=== PATIENT | female | born 1990 ===

== ENCOUNTER 2016-05-30 20:28 | Observation (INO) | payer OTHER ==
[2016-05-30 20:42] VITALS: O2SAT 100
[2016-05-30 21:32] LABS: BASO % 0.4 % (0.0-2.0); EOS # 0.1 K/uL (0.0-0.7); EOS % 1.6 % (0.0-4.0); HEMATOCRIT 31.8 % (34.0-47.0); LYMPH # 1.8 K/uL (1.0-4.3); MEAN CELL VOLUME 86.8 fL (81.0-99.0); MEAN CORPUSCULAR HEMOGLOBIN 28.9 pg (27.0-31.0); MEAN CORPUSCULAR HGB CONC 33.3 g/dL (33.0-37.0); MEAN PLATELET VOLUME 8.9 fL (7.2-11.7); MONO # 0.6 K/uL (0.0-0.8); MONO % 7.2 % (0.0-10.0); RED CELL DISTRIBUTION WIDTH 12.7 % (11.5-14.5); WHITE BLOOD COUNT 8.5 K/uL (4.8-10.8)
[2016-05-30 21:37] LABS: CHLORIDE 105 mmol/L (98-107); POTASSIUM 3.8 mmol/L (3.6-5.2); SODIUM 137 mmol/L (132-148)
[2016-05-30 21:39] LABS: BILIRUBIN,TOTAL 0.2 mg/dL (0.2-1.3); GFR AFRICAN-AMERICAN > 60
--- NOTE | 2016-05-30 21:39 | C.PDOC ---
History Of Present Illness 25 y/o female (currently 17 weeks - ), presents to the ED with complains of RLQ/suprapubic pain since 1700 today (5 hours). Pt states pain has since improved but feels "like something is coming out" of her vagina. She denies vaginal bleeding, discharge, dysuria/hematuria, fever, falls/injuries. 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 Zavala, last US was 05/05/16. Time Seen by Provider: 05/30/16 20:42 Chief Complaint (Nursing): Abdominal Pain History Per: Patient History/Exam Limitations: no limitations Onset/Duration Of Symptoms: Hrs Current Symptoms Are (Timing): Still Present Severity: Mild Location Of Pain/Discomfort: Suprapubic Radiation Of Pain To:: None Quality Of Discomfort: "Pain" Associated Symptoms: denies: Fever, Chills, Nausea, Vomiting, Diarrhea, Urinary Symptoms Exacerbating Factors: None Alleviating Factors: None Recent travel outside of the [place]: No Abnormal Vaginal Bleeding: No Past Medical History Reviewed: Historical Data, Nursing Documentation, Vital Signs Vital Signs: Last Vital Signs Temp 97.1 F L 05/31/16 08:00 Pulse 90 05/31/16 08:00 Resp 18 05/31/16 08:00 BP 96/61 L 05/31/16 08:00 Pulse Ox 100 05/31/16 08:00 - Medical History PMH: No Chronic Diseases Surgical History: No Surg Hx Family History: States: No Known Family Hx - Social History Hx Alcohol Use: No Hx Substance Use: No - Immunization History Hx Tetanus Toxoid Vaccination: No Hx Influenza Vaccination: No Hx Pneumococcal Vaccination: No Review Of Systems Except As Marked, All Systems Reviewed And Found Negative. Constitutional: Negative for: Fever, Chills Cardiovascular: Negative for: Chest Pain, Palpitations Respiratory: Negative for: Cough, Shortness of Breath Gastrointestinal: Negative for: Nausea, Vomiting, Abdominal Pain, Diarrhea Genitourinary: Positive for: Pelvic Pain, Other (pressure sensation in vagina). Negative for: Dysuria, Hematuria, Vaginal Discharge, Vaginal Bleeding Physical Exam - Physical Exam Appears: Non-toxic, No Acute Distress, Other (anxious, tearful) Skin: Warm, Dry Head: Normacephalic Oral Mucosa: Moist Neck: Supple Cardiovascular: Rhythm Regular Respiratory: Normal Breath Sounds, No Rales, No Rhonchi, No Wheezing Gastrointestinal/Abdominal: Bowel Sounds, Soft, Tenderness (mild suprapubic/RLQ tenderness), No Guarding, No Rebound, Other (gravid, fundus 2-3 cm below umbilicus) Pelvic: Normal External Exam, No Vaginal Bleeding, No Vaginal Discharge, Cervix Open, Other (clear colored membrabes protruding through open cervix, no bleeding ) Extremity: Bilateral: Atraumatic Neurological/Psych: Oriented x3 ED Course And Treatment - Laboratory Results Result Diagrams: 06/01/16 06:01 05/30/16 21:25 O2 Sat by Pulse Oximetry: 100 (on room air) Pulse Ox Interpretation: Normal - Other Rad OB US X-Ray: Viewed By Me, Read By Radiologist Interpretation: EXAM: US Uterus (limited). CLINICAL HISTORY: 25 year old female with pelvic pain. Second trimester. Gestational age or LMP: 01/29/16. TECHNIQUE: Real-time ultrasound of the maternal uterus (limited) with image documentation. EXAM DATE/TIME: 05/30/16 (9:08pm). COMPARISON: US OB report from 03/13/16. FINDINGS: The LMP is reported to be: 01/29/16. A single live intrauterine is identified, approx. 17 weeks 1 day composite gestational age. Normal interval growth is noted over the past 11 weeks. heart rate is recorded at 150 bpm. The fetus lies breech. The placenta is posterior, with no evidence of previa. The cervix is dilated, compatible with cervical incompetence. The cervix reaches a diameter of. approx. 3.2 cm. The EFBW = 194 gms (0 lb 7 oz). Amniotic fluid volume is visually adequate. TONNY CORTES | Preliminary Radiology Report. TRANSIT BUS DRIVER (QA) DISCREPANCY? If there is a discrepancy between the preliminary and final interpretation, please notify [facility] via [email or web address]. If you do not have access to our QA portal, call our QA team at [phone]. CONFIDENTIALITY STATEMENT. This report is intended only for the use of the referring physician, and only in accordance with law, If you received this in error, call [phone]. Page 2 of 2. No gross anomalies are seen. A 3-vessel cord and cord insertion are visualized. The . stomach, kidneys, and extremities appear unremarkable. IMPRESSION: A single live intrauterine is identified, approx. 17 weeks 1 day gestational age. Based on. the earlier sonogram, the VILLA = . heartbeat is seen. The placenta is posterior, with no previa noted. The fetus lies breech at this time. Findings compatible with cervical incompetence. No gross morphological anomalies are appreciated. IMPRESSION: Thank you for allowing us to participate in the care of your patient. Dictated and Authenticated by: Sugar Phillips MD. 05/30/2016 11:22 PM Eastern Time ([place] & [place]) ABD US X-Ray: Viewed By Me, Read By Radiologist Interpretation: EXAM: US Abdomen Complete. CLINICAL HISTORY: 25 years old female with RLQ pain. Visualize appendix. TECHNIQUE: Real-time ultrasound of the abdomen (complete) with image documentation. EXAM DATE/TIME: 05/30/16 (9:15pm). COMPARISON: No relevant prior studies available. FINDINGS : This is a limited study due to overlying bowel gas. The liver is normal in size (14.1 cm length) and texture. The spleen was not examined. The gallbladder demonstrates normal wall thickness (2.5 mm), with no stones nor sludge appreciated. No pericholecystic fluid is seen. The sonographic Patel' s sign is reported to be (-). The CBD is not dilated (3.9 mm diameter). The kidneys are normal in size, with no solid masses and no gross hydronephrosis noted. The right. intrarenal collecting system is mildly full. The right kidney measures 10.8 cm in length. The left kidney measures 11.4 cm in length. The pancreas is not clearly visualized (obscured by bowel gas). TONNY CORTES | Preliminary Radiology Report. TRANSIT BUS DRIVER (QA) DISCREPANCY? If there is a discrepancy between the preliminary and final interpretation, please notify [facility] via [email or web address]. If you do not have access to our QA portal, call our QA team at [phone]. CONFIDENTIALITY STATEMENT. This report is intended only for the use of the referring physician, and only in accordance with law, If you received this in error, call [phone]. Page 2 of 2. No abnormal fluid collections are seen. The abdominal aorta and IVC appear unremarkable. IMPRESSION: The right intrarenal collecting system is mildly full. No obstructing stones are seen. The gallbladder is unremarkable, with no stones identified. No biliary obstruction is evident. Thank you for allowing us to participate in the care of your patient. Dictated and Authenticated by: Sugar Phillips MD. 05/30/2016 10:39 PM Eastern Time ([place] & [place]) Progress Note: Plan: Blood work, UA, US of abdomnen/pelvis ordered. Patient given IV NS bolus. 10:40PM- Patient returned to ER from US, pelvic exam done by me shows membranes bulging through cervix. Call placed to patient's business reporting developer, she will call me back. Pending call back from our business reporting developer Dr. Gould who is currently in the OR. - Physician Consult Information Physician Contacted: Ivon Tellez Outcome Of Conversation: Discussed patient with Dr. Tripp Tellez, she would like patient admitted as obs to business reporting developer floor (already spoke with out business reporting developer Dr. Gould) . Patient to be on strict bedrest and made NPO after midnight - for possible cerclage in the AM. Critical Care Time - Critical Care Note Total Time (in mins): 35 Documented critical care: time excludes all time spent performing seperately billable procedures. Disposition - Disposition Disposition: HOSPITALIZED Disposition Time: 23:03 Condition: STABLE - Clinical Impression Clinical Impression: Threatened , Pelvic pain, - Scribe Statement The provider has reviewed the documentation as recorded by the Jaylene García Provider Attestation: All medical record entries made by the Jaylene were at my direction and personally dictated by me. I have reviewed the chart and agree that the record accurately reflects my personal performance of the history, physical exam, medical decision making, and the department course for this patient. I have also personally directed, reviewed, and agree with the discharge instructions and disposition. Decision To Admit - Pt Status Changed To: Hospital Disposition Of: Observation - . Bed Request Type: GATE CLERK Admitting Physician: Ivon Tellez Patient Diagnosis: Threatened , Pelvic pain,
[2016-05-30 21:40] LABS: ALKALINE PHOSPHATASE 113 U/L (38-126); ALT/SGPT 78 U/L (9-52); AST/SGOT 45 U/L (14-36); BLOOD UREA NITROGEN 3 mg/dL (7-17); CARBON DIOXIDE 20 mmol/L (22-30); GLUCOSE,RANDOM 81 mg/dL (65-105); TOTAL PROTEIN 6.8 g/dL (6.3-8.3)
[2016-05-30 21:41] LABS: CALCIUM 8.7 mg/dl (8.6-10.4)
[2016-05-30 22:35] LABS: RBC URINE < 1 /hpf (0-3); URINE BACTERIA OCC (<OCC); URINE BILIRUBIN NEGATIVE (NEGATIVE); URINE COLOR Straw (YELLOW); URINE GLUCOSE (UA) NORMAL (Normal); URINE KETONE 1+ mg/dL (NEGATIVE); URINE PROTEIN NEGATIVE (NEGATIVE); URINE UROBILINOGEN NORMAL mg/dL (0.2-1.0); WBC URINE 4 /hpf (0-5)
[2016-05-30 22:38] LABS: URINE BLOOD NEGATIVE (NEGATIVE); URINE LEUKOCYTE ESTERASE TRACE Leu/uL (Negative)
[2016-05-31 08:42] VITALS: BP 96/61; PULSE 90; RESP 18; TEMP 97.1
--- NOTE | 2016-05-31 10:04 | US ---
HISTORY: RLQ PAIN, VISUALIZE APPENDIX COMPARISON: None. TECHNIQUE: Grayscale imaging was performed. Examination is limited due to excessive bowel gas. FINDINGS: LIVER: Measures 14.0 cm. Normal echogenicity of the liver parenchyma. No mass. No intrahepatic bile duct dilatation. GALLBLADDER: Unremarkable. No gallstones. COMMON BILE DUCT: Measures 4.0 mm. No stones. No dilatation. PANCREAS: Obscured by bowel gas. RIGHT KIDNEY: Measures 10.7cm. Normal echogenicity. No calculus, mass, or hydronephrosis. There is mild fullness in the collecting system. LEFT KIDNEY: Measures 11.4cm. Normal echogenicity. No calculus, mass, or hydronephrosis. SPLEEN: Normal in size and contour. No mass. AORTA: No aneurysmal dilatation. IVC: Unremarkable. OTHER FINDINGS: None. IMPRESSION: Limited examination due to excessive bowel gas, allowing for this no evidence of cholelithiasis or biliary dilatation. Mild fullness in the right collecting system. No nephrolithiasis.
--- NOTE | 2016-05-31 10:14 | CP.PCM.HP ---
History of Present Illness - History of Present Illness History of Present Illness: 25 y/o @ 17.3 wks GA VILLA 11/05/2016 with IVF , bicornuate uterus vanishing twin who reported feeling pressure type symptoms around 5pm yesterday after urinating. Pt felt that something was coming out again at 6pm when she stood up to go to bathroom. Pt states everytime we stood up felt same symptoms. Pt paged MD with feeling like something is coming out and was advised to take ambulance and go to nearest hospital. UPon evualation by ER Exam was significant for membranes in vagina. Pt was admitted overnight and evaluated by me this morning. Pt currently had no complaints, no pressure, no pain and was using bedpan to urinate as anytime she stood up felt pressure and somethign protruding. UPon examination, membranes were outside of the vagina, and on specululm exam pt had bulging membranes with slighlty discolored amnitotic fluid and upon gentle examination felt to be 5cm dilated. Pt denies any pain, bowel or bladder complaints, vaginal bleeding, pressure, fevers, chills, nause, vomiting. Bedside US showed within vaginal, low FHR 90bpm Pt informed MFM Dr Zavala consulted and advised reocmmend elective termination with antibiotics due to inevitable with poor survivial and risks not limited to matenral sepsis/ . Both patient and agree to proceed with termination due to risks. ALl questions answered. OB: P0 PLUGGER MAN: Denies hx of abnormal pap, fibroids, ovairan cyst, STI PMH: Denies PSH: denies FHX: denies SHX: negative etoh/tobacco/drugs MEDS :PNV NKDA Present on Admission - Present on Admission Any Indicators Present on Admission: No Review of Systems - Constitutional Constitutional: As Per HPI - EENT Eyes: As Per HPI Ears: As Per HPI Nose/Mouth/Throat: As Per HPI - Breasts Breasts: As Per HPI - Cardiovascular Cardiovascular: As Per HPI - Respiratory Respiratory: As Per HPI - Gastrointestinal Gastrointestinal: As Per HPI - Genitourinary Genitourinary: As Per HPI - Reproductive: Female Reproductive:Female: As Per HPI - Menstruation Menstruation: As Per HPI - Musculoskeletal Musculoskeletal: As Per HPI Past Patient History - Infectious Disease Hx of Infectious Diseases: None - Past Medical History & Family History Past Medical History?: No Past Family History: Reviewed and not pertinent - Past Social History Smoking Status: Never Smoked Chewing Tobacco Use: No Cigar Use: No Alcohol: None Home Situation {Lives}: With Family Domestic Violence: Negative - CARDIAC Hx Cardiac Disorders: No - PSYCHIATRIC Hx Substance Use: No - SURGICAL HISTORY Hx Surgeries: No - ANESTHESIA Hx Anesthesia: No Meds Allergies/Adverse Reactions: Allergies Allergy/AdvReac Type Severity Reaction Status Date / Time No Known Allergies Allergy Unverified 05/30/16 20:42 Physical Exam - Constitutional Appears: Well, Non-toxic - Head Exam Head Exam: ATRAUMATIC, NORMAL INSPECTION - Eye Exam Eye Exam: EOMI, Normal appearance, PERRL Pupil Exam: NORMAL ACCOMODATION - ENT Exam ENT Exam: Mucous Membranes Moist, Normal Exam - Neck Exam Neck exam: Positive for: Normal Inspection - Respiratory Exam Respiratory Exam: Clear to Auscultation Bilateral, NORMAL BREATHING PATTERN - Cardiovascular Exam Cardiovascular Exam: REGULAR RHYTHM, +S1, +S2 - GI/Abdominal Exam GI & Abdominal Exam: Normal Bowel Sounds, Soft Additional comments: gravid, non tender, no uterine tenderness, no guarding,no rebound tendenress, no rigidity - Rectal Exam Rectal Exam: Deferred - Exam Additional comments: External Genitalia: Membranes visulzued outside of vagina Bladder: non tender Vagina: Membranes slighlty discolored amniotic flud bulging sac in vagina, palpable parts in vagina Cerivx 5cm / 100/+ Uteurs; non tender Adnexa; difficulty to apprecaite ANus/Perienum: grossly normal - Neurological Exam Neurological exam: Abnormal Gait, Alert, CN II-XII Intact - Psychiatric Exam Psychiatric exam: Normal Affect, Normal Mood - Skin Skin Exam: Dry, Intact, Normal Color Additional comments: negative magno's sign, no cyanois, clubbing, edmea Results - Vital Signs Recent Vital Signs: Last Vital Signs Temp 97.1 F L 05/31/16 08:00 Pulse 90 05/31/16 08:00 Resp 18 05/31/16 08:00 BP 96/61 L 05/31/16 08:00 Pulse Ox 100 05/31/16 08:00 - Labs Result Diagrams: 05/30/16 21:25 05/30/16 21:25 Assessment & Plan (1) Inevitable Assessment and Plan: 1. Admit to OBGYN 2. NPO, IVF 3. Cytotec per vagina q 4 hours for elective induction for termination due to inevitable 4. Suspected chorioamnitos: Ampicillin, Gentamyicn 5. Daily CBC 6. SCDS 7. VS per protocol 8. Bereavement services Status: Acute
--- NOTE | 2016-05-31 11:55 | US ---
PROCEDURE: Obstetrical ultrasound examination HISTORY: PELVIC PAIN, COMPARISON: 03/13/2016 TECHNIQUE: Transabdominal FINDINGS: The examination demonstrates a single live intrauterine gestation. The heart rate is 156 beats per minute. Normal quantity of amniotic fluid is visualized. A posterior placenta is identified. There is no evidence of placenta previa. The cervix is incompetent and widely open. It measures approximately 3.2 cm . The presentation appears breech. biometry yields an average ultrasound age of 17 weeks 1 day. The VILLA by ultrasound is 11/06/2016. Interval growth has been appropriate since the prior ultrasound examination. Limited review of anatomy demonstrates fluid distending the stomach and urinary bladder. A 4 chamber heart is demonstrated. No gross abnormality of the spine is seen. There is no evidence of hydronephrosis. A three- vessel umbilical cord is demonstrated. The anterior abdominal wall is intact. IMPRESSION: Single live intrauterine gestation of approximately 17 weeks 1 day gestational age. Incompetent cervix, widely no gross anatomic abnormality. Posterior placenta. No evidence of placenta previa. Normal interval growth since prior ultrasound examination. Preliminary interpretation of this examination was reported by [email or web address] at 11:22 p.m. on 05/30/2016. There is concurrence of this report with the preliminary interpretation. [facility]
[2016-05-31] MEDS ORDERED: Nalbuphine 20 mg/ml Inj (1 ml) IVP PRN (12:00)
--- NOTE | 2016-05-31 13:17 | OBPN ---
Datetime: 05/31/2016 13:09 IP Progress Note Comment: Patient received in LDR#4, crying and appropriately sad. at rabia e - serves as clarification re: language Patient reports crampy lower abdomnal pain onset approximately 10 - 15 minutes ago. Cytotec 400 micrograms placed in posterior vaginal vault. parts palpabel in vaginal vault. Assessment: 25 yo P0, 17w 3d, inevitable , IVF , vanishing twin for evacuation of uterus. Afebrile, vital signs stable. Clinically stable. Plan: 1) As above. 2) Cytotec 400 micrograms pV every 4 hours, until passage of fetus 3) Nubain, phenergan for pain - as per Dr. Tellez
[2016-05-31] MEDS: Gentamicin 80 mg in 0.9% NS 100 ML IVPB SCH ×2 (13:37→21:07)
[2016-05-31] MEDS ORDERED: Nalbuphine 20 mg/ml Inj (1 ml) ONE (14:05)
[2016-05-31] MEDS: Lactated Ringer's 1,000 ML IV SCH ×2 (18:58→21:12)
--- NOTE | 2016-05-31 20:15 | OBDS ---
DELIVERY PERSONNEL Delivery Doctor: Arleth Carrero MD Bioanalyst: AllieLinda RN MATERNAL INFORMATION Delivery Anesthesia: None Medications in Delivery: Oxytocin 20 u 1000 ml LR Maternal Complications: Other Other Maternal Complications: Came in with bulging membrane,4 cm dilated.See providers view RN Comments: 1428 17 WEEKS FETUS EXPELLED,mother stated not wanting to see the baby.Dr BETH scott notified.Placenta not yet delivered.Pitocin 20 u 1L LR infusing @125/min.NO undue vaginal bleedi ng.Pt made comfortable. Provider Comments: pt seen and examined. umbilical cord outside of vagin, one pull, cord detached, m anueal removal of placenta. fundus firm, good hemostaiss, no ocmplicatoins. LABOR SUMMARY EDC: 11/05/2016 00:00 No. Babies in Womb: 1 Attempted: No Labor Anesthesia: None LABOR INFORMATION Cervical Ripening Agents: Cytotec @ 400 mcg intravaginally inserted by Arleth Garcia,dose verified,p rocedure ,actions explained to patient,verbalized understanding MEMBRANES Membranes Rupture Method: Spontaneous Rupture of Membranes: 05/31/2016 14:26 Length of Rupture (hrs): 0.03 Amniotic Fluid Color: Clear Amniotic Fluid Amount: Small Amniotic Fluid Odor: Normal STAGES OF LABOR Stage 3 hrs: 5 Stage 3 min: 42 BABY A INFORMATION Delivery Date/Time: 05/31/2016 14:28 SHOULDER DYSTOCIA BABY A Delivery Date/Time: 05/31/2016 14:28 PLACENTA INFORMATION BABY A Placenta Delivery Time : 05/31/2016 20:10 Placenta Method of Delivery: Manual Removal Placenta Status: Delivered INFORMATION BABY A Infant Outcome : AB < 20 Week
[2016-05-31] MEDS ORDERED: Oxycodone/Acetaminophen 5/325 mg Tab PO PRN ×2 (20:30)
[2016-05-31] MEDS ORDERED: Gentamicin 80 mg/2mL Inj. ONE (21:03)
[2016-06-01] MEDS: Gentamicin 80 mg in 0.9% NS 100 ML IVPB SCH (05:00)
[2016-06-01] MEDS ORDERED: Gentamicin 80 mg/2mL Inj. ONE (05:01)
[2016-06-01 06:06] LABS: MEAN CORPUSCULAR HGB CONC 33.4 g/dL (33.0-37.0); MEAN PLATELET VOLUME 9.2 fL (7.2-11.7); WHITE BLOOD COUNT 9.5 K/uL (4.8-10.8)
--- NOTE | 2016-06-01 10:25 | OBPN ---
Datetime: 06/01/2016 09:00 IP Progress Plan: Discharge IP Progress Note Comment: Patient received sitting up in bed, LDR#4: appropriately sad. at h er bedside. No complaints HEENT: Full ROM Lungs: CTA bilaterally Cardiac: RRR, normal S1, S2 Abdomen: soft, non distended; non tender in all quadrants - mild lochia rubra Extremities: no calf tenderness, cyanosis or edema - CBC this morning: WBC 9.5; H/H 9.4/28; plt 265 Assessment: HD#3, 25 yo P0010, S/P inevitable at 17w 3d. Patient has received support fro saroj Regrader and has been counseled by social sciences chair - referral information has been provided. Anemic - asymptomatic. Patient is afebrile, vital signs noted and stable. Patient is clinically stable. Plan 1) Discharge home 2) F/U Dr Tellez WEd 06/07/16 3) see full discharge instructions
== END 2016-06-01 10:30 | disposition home or self-care (01) ==
LOC: C.ER 20:28 → C.4M 23:03 → C.9E 23:03 → C.4D 23:03
PROVIDERS: ADMIT Obstetrics & Gynecology; ATTEND Obstetrics & Gynecology
DX: O02.1 Missed abortion (principal)
CPT/HCPCS: 59200; 76705; 76815; 80053; 81001; 84702; 85025; 85027; 86850; 86900; 88305; 88309; 99285; G0378; J0290; J1580; J2550; J7050; J7120

== ENCOUNTER 2016-09-06 16:18 | Emergency (ER) | payer OTHER ==
[2016-09-06 16:31] VITALS: RESP 16; TEMP 97.8
--- NOTE | 2016-09-06 17:45 | US ---
HISTORY: vaginal bleeding with LLQ pain COMPARISON: OB ultrasound performed 05/30/16 TECHNIQUE: Real-time transabdominal pelvic ultrasound was performed. In addition a transvaginal pelvic ultrasound was necessary to better depict pelvic anatomy. FINDINGS: UTERUS: Measures 8.7 x 4.6 x 6.0 cm. Anteverted. ENDOMETRIUM: Measures 8 mm in diameter. CERVIX: Cervix length measures approximately 3.7 cm. Small fluid in the cervix. RIGHT OVARY: Measures 3.7 x 2.8 x 3.3 cm. Blood flow is demonstrated. 1.6 x 1.8 x 1.3 cm follicle/cyst. LEFT OVARY: Measures 4.0 x 2.4 x 3.7 cm. Blood flow is demonstrated. 1.2 x 1.0 x 1.6 cm follicle/cyst. FREE FLUID: Small pelvic free fluid. OTHER FINDINGS: None. IMPRESSION: Bilateral follicles/ cysts. Small pelvic free fluid. Small fluid in the cervix.
[2016-09-06 17:53] LABS: BASO # 0.1 K/uL (0.0-0.2); BASO % 0.8 % (0.0-2.0); EOS # 0.1 K/uL (0.0-0.7); EOS % 1.3 % (0.0-4.0); HEMOGLOBIN 12.5 g/dL (11.0-16.0); LYMPH # 1.9 K/uL (1.0-4.3); LYMPH % 21.9 % (20.0-40.0); MEAN CELL VOLUME 84.3 fL (81.0-99.0); MEAN CORPUSCULAR HEMOGLOBIN 28.1 pg (27.0-31.0); MEAN CORPUSCULAR HGB CONC 33.4 g/dL (33.0-37.0); MEAN PLATELET VOLUME 7.9 fL (7.2-11.7); MONO # 0.4 K/uL (0.0-0.8); MONO % 4.6 % (0.0-10.0); NEUT # 6.1 K/uL (1.8-7.0); NEUT % 71.4 % (50.0-75.0); RBC 4.43 Mil/uL (3.80-5.20); RED CELL DISTRIBUTION WIDTH 12.2 % (11.5-14.5); WHITE BLOOD COUNT 8.6 K/uL (4.8-10.8)
--- NOTE | 2016-09-06 19:12 | C.PDOC ---
History Of Present Illness Patient is a 26 y/o female that presents to the emergency department for evaluation of vaginal bleeding, and chronic left side pelvic pain. Patient states she had miscarriage 3 months ago. Her menses has been heavier than usual and lasting 10 days instead of the usual 7. Patient states today is her 7th day of bleeding, and states she was bleeding heavily today. She was seen in the office by her ornament setter today and sent to the ED for labs and US. Notes she has been constipated for past 2 days. Otherwise, denies any dizziness, lightheadedness, nausea, vomiting, or fever. Time Seen by Provider: 09/06/16 16:45 Chief Complaint (Nursing): Female Genitourinary History Per: Patient History/Exam Limitations: no limitations Onset/Duration Of Symptoms: Days Current Symptoms Are (Timing): Still Present Quality Of Discomfort: "Pain" Associated Symptoms: Back Pain. denies: Fever, Chills, Nausea, Vomiting, Diarrhea, Loss Of Appetite, Chest Pain, Constipation, Urinary Symptoms Alleviating Factors: None Recent travel outside of the [place]: No Additional History Per: Patient Abnormal Vaginal Bleeding: Yes Past Medical History Reviewed: Historical Data, Nursing Documentation, Vital Signs Vital Signs: Last Vital Signs Temp 97.8 F 09/06/16 16:24 Pulse 82 09/06/16 16:24 Resp 16 09/06/16 16:24 BP 108/72 09/06/16 16:24 Pulse Ox 100 09/06/16 19:22 Family History: States: Unknown Family Hx - Social History Hx Alcohol Use: No Hx Substance Use: No - Immunization History Hx Tetanus Toxoid Vaccination: No Hx Influenza Vaccination: No Hx Pneumococcal Vaccination: No Review Of Systems Except As Marked, All Systems Reviewed And Found Negative. Constitutional: Negative for: Fever, Chills Cardiovascular: Negative for: Chest Pain, Palpitations, Light Headedness Gastrointestinal: Positive for: Constipation. Negative for: Nausea, Vomiting Genitourinary: Positive for: Vaginal Bleeding, Pelvic Pain. Negative for: Dysuria, Frequency, Incontinence, Hematuria, Vaginal Discharge Physical Exam - Physical Exam Appears: Non-toxic, No Acute Distress Skin: Normal Color, Warm, Dry Head: Atraumatic, Normacephalic Eye(s): bilateral: Normal Inspection Neck: Normal ROM, Supple Chest: Symmetrical Cardiovascular: Rhythm Regular, No Murmur Respiratory: Normal Breath Sounds, No Accessory Muscle Use, No Rales, No Rhonchi , No Wheezing Gastrointestinal/Abdominal: Soft, Tenderness (left pelvic), No Guarding, No Rebound Neurological/Psych: Oriented x3, Normal Speech, Normal Cognition ED Course And Treatment - Laboratory Results Result Diagrams: 09/06/16 17:50 Lab Interpretation: Normal O2 Sat by Pulse Oximetry: 100 Pulse Ox Interpretation: Normal Progress Note: Blood work, pelvis ultrasound ordered and reviewed. Reevaluation Time: 19:46 Reassessment Condition: Improved Disposition Counseled Patient/Family Regarding: Studies Performed, Diagnosis, Need For Followup - Disposition Referrals: Ivon Tellez MD [Staff Provider] - Disposition: HOME/ ROUTINE Disposition Time: 19:58 Condition: IMPROVED Instructions: Menstruation (ED), Menorrhagia (ED) - Clinical Impression Clinical Impression: Menometrorrhagia - Scribe Statement The provider has reviewed the documentation as recorded by the Scribe Thalia Tellez All medical record entries made by the Scribe were at my direction and personally dictated by me. I have reviewed the chart and agree that the record accurately reflects my personal performance of the history, physical exam, medical decision making, and the department course for this patient. I have also personally directed, reviewed, and agree with the discharge instructions and disposition.
[2016-09-06 20:07] VITALS: BP 101/66; PULSE 78; O2SAT 98
== END 2016-09-06 20:07 | disposition home or self-care (01) ==
LOC: C.ER 16:18
DX: N92.1 Excessive and frequent menstruation with irregular cycle (principal)

== ENCOUNTER 2016-09-08 01:49 | Emergency (ER) | payer OTHER ==
--- NOTE | 2016-09-08 02:09 | C.PDOC ---
History Of Present Illness 26 y/o female presents to ED with complaints of increased vaginal bleeding and suprapubic tenderness. Patient states she had a miscarriage 3 months ago and reports heavy menses lasting 10 days instead of usual 7 days. Patient was seen yesterday at ED for similar symptoms and had a negative work up. Patient denies fever, chills, n/v/d, back pain or any other complaints at this time. Time Seen by Provider: 09/08/16 02:08 Chief Complaint (Nursing): Female Genitourinary History Per: Patient History/Exam Limitations: no limitations Onset/Duration Of Symptoms: Days Past Medical History Reviewed: Historical Data, Nursing Documentation, Vital Signs Vital Signs: Last Vital Signs Temp 98 F 09/08/16 02:08 Pulse 88 09/08/16 02:08 Resp 20 09/08/16 02:08 BP 110/74 09/08/16 02:08 Pulse Ox 100 09/08/16 03:00 Family History: States: Unknown Family Hx - Social History Hx Alcohol Use: No Hx Substance Use: No - Immunization History Hx Tetanus Toxoid Vaccination: No Hx Influenza Vaccination: No Hx Pneumococcal Vaccination: No Review Of Systems Constitutional: Negative for: Fever, Chills Gastrointestinal: Negative for: Nausea, Vomiting, Diarrhea Genitourinary: Positive for: Vaginal Bleeding Musculoskeletal: Negative for: Back Pain Skin: Negative for: Rash Physical Exam - Physical Exam Appears: Non-toxic, No Acute Distress Skin: Warm Head: Normacephalic Eye(s): bilateral: Normal Inspection Oral Mucosa: Moist Neck: Supple Chest: Symmetrical Cardiovascular: Rhythm Regular Respiratory: No Rales, No Rhonchi, No Wheezing Gastrointestinal/Abdominal: Tenderness (suprapubic ), No Guarding, No Rebound Pelvic: Other (small amount of blood seen on pad.) Extremity: Normal ROM Neurological/Psych: Oriented x3, Normal Speech, Normal Cognition Gait: Steady ED Course And Treatment - Laboratory Results Result Diagrams: 09/08/16 02:39 09/08/16 02:39 O2 Sat by Pulse Oximetry: 100 (RA) Pulse Ox Interpretation: Normal Progress Note: spoke with dr mcqueen - line analyst - as Hb is stable 12.5/12.2 pt most likely is getting her period. vitals stable Reevaluation Time: 04:11 Reassessment Condition: Improved Medical Decision Making Medical Decision Making: Upon provider reevaluation patient is feeling better, is medically stable, and requires no further treatment in the ED at this time. Patient will be discharged home with Rx for percocet. Counseling was provided and all questions were answered regarding diagnosis and need for follow up with dr zhao pearson. There is agreement to discharge plan. Return if symptoms persist or worsen. Disposition Counseled Patient/Family Regarding: Studies Performed, Diagnosis, Need For Followup - Disposition Referrals: Ivon Pearson MD [Staff Provider] - Disposition: HOME/ ROUTINE Disposition Time: 02:09 Condition: FAIR Additional Instructions: Please return if symptoms recur. Prescriptions: Ondansetron ODT [Zofran ODT] 1 odt PO BID PRN #6 odt PRN Reason: Nausea/Vomiting oxyCODONE/Acetaminophen [Percocet 5/325 mg Tab] 1 tab PO QID PRN #10 tab PRN Reason: Pain Instructions: Menstruation (ED), Menorrhagia (ED) - Clinical Impression Clinical Impression: Menstruation - Scribe Statement The provider has reviewed the documentation as recorded by the Valenteibshea Arteaga All medical record entries made by the Valenteibshea were at my direction and personally dictated by me. I have reviewed the chart and agree that the record accurately reflects my personal performance of the history, physical exam, medical decision making, and the department course for this patient. I have also personally directed, reviewed, and agree with the discharge instructions and disposition.
[2016-09-08] MEDS ORDERED: Sodium Chloride 0.9% 1,000 ML IV ONE (02:14)
[2016-09-08 02:19] VITALS: BMI 23.2
[2016-09-08 02:20] VITALS: RESP 20
[2016-09-08 02:45] LABS: ALBUMIN 4.1 g/dL (3.5-5.0); BASO # 0.2 K/uL (0.0-0.2); BASO % 1.5 % (0.0-2.0); EOS # 0.5 K/uL (0.0-0.7); HEMOGLOBIN 12.2 g/dL (11.0-16.0); LYMPH # 3.7 K/uL (1.0-4.3); MEAN CELL VOLUME 84.5 fL (81.0-99.0); MEAN CORPUSCULAR HEMOGLOBIN 27.6 pg (27.0-31.0); MEAN CORPUSCULAR HGB CONC 32.6 g/dL (33.0-37.0); MEAN PLATELET VOLUME 8.1 fL (7.2-11.7); MONO # 0.6 K/uL (0.0-0.8); MONO % 5.9 % (0.0-10.0); NEUT # 5.8 K/uL (1.8-7.0); NEUT % 53.6 % (50.0-75.0); RBC 4.4 Mil/uL (3.80-5.20); RED CELL DISTRIBUTION WIDTH 12.4 % (11.5-14.5); WHITE BLOOD COUNT 10.8 K/uL (4.8-10.8)
[2016-09-08 02:46] LABS: INR 1.1; PROTHROMBIN TIME 12.1 SECONDS (9.7-12.2)
[2016-09-08 02:48] LABS: ALB/GLOB RATIO 1.1 (1.0-2.1); AST/SGOT 19 U/L (14-36); BLOOD UREA NITROGEN 6 mg/dL (7-17); GFR AFRICAN-AMERICAN > 60; GFR NON-AFRICAN AMERICAN > 60
[2016-09-08 02:49] LABS: ALT/SGPT 22 U/L (9-52)
[2016-09-08 04:28] VITALS: BP 100/65; PULSE 81; TEMP 98.3; O2SAT 97
== END 2016-09-08 04:28 | disposition home or self-care (01) ==
LOC: C.ER 01:49
DX: N92.0 Excessive and frequent menstruation with regular cycle (principal)
CPT/HCPCS: 80053; 85025; 85610; 85730; 86850; 86900; 96361; 96374; 99284; J1885; J7040

== ENCOUNTER 2016-09-09 16:50 | Inpatient (IN) | payer OTHER ==
[2016-09-09 16:50] VITALS: BMI 23.2
[2016-09-09] MEDS ORDERED: Sodium Chloride 0.9% 1,000 ML IV ONE (17:33)
[2016-09-09 18:06] LABS: ALBUMIN 4.2 g/dL (3.5-5.0)
[2016-09-09 18:09] LABS: ALB/GLOB RATIO 1.1 (1.0-2.1); AST/SGOT 22 U/L (14-36); BASO # 0.1 K/uL (0.0-0.2); BASO % 0.9 % (0.0-2.0); EOS # 0.3 K/uL (0.0-0.7); EOS % 3.4 % (0.0-4.0); GFR AFRICAN-AMERICAN > 60; GFR NON-AFRICAN AMERICAN > 60; HEMOGLOBIN 10.8 g/dL (11.0-16.0); LYMPH # 2.3 K/uL (1.0-4.3); MEAN CELL VOLUME 84.5 fL (81.0-99.0); MEAN CORPUSCULAR HEMOGLOBIN 27.8 pg (27.0-31.0); MEAN CORPUSCULAR HGB CONC 32.9 g/dL (33.0-37.0); MEAN PLATELET VOLUME 8.3 fL (7.2-11.7); MONO # 0.7 K/uL (0.0-0.8); MONO % 7.1 % (0.0-10.0); NEUT # 5.9 K/uL (1.8-7.0); NEUT % 63.6 % (50.0-75.0); NRBC % 0.1 % (0.0-2.0); RBC 3.9 Mil/uL (3.80-5.20); RED CELL DISTRIBUTION WIDTH 12.3 % (11.5-14.5); WHITE BLOOD COUNT 9.3 K/uL (4.8-10.8)
[2016-09-09 18:10] LABS: ALT/SGPT 19 U/L (9-52); BLOOD UREA NITROGEN 8 mg/dL (7-17); CALCIUM 9.4 mg/dl (8.6-10.4)
--- NOTE | 2016-09-09 18:16 | C.PDOC ---
History Of Present Illness This is this patient's third ED visit this week for vaginal bleeding. Time Seen by Provider: 09/09/16 17:05 Chief Complaint (Nursing): Female Genitourinary History Per: Patient, Family Onset/Duration Of Symptoms: Days, Waxing/Waning, Persistent Current Symptoms Are (Timing): Still Present Severity: Moderate (to severe) Quality Of Discomfort: Cramping Alleviating Factors: None Additional History Per: Prior Records Abnormal Vaginal Bleeding: Yes Past Medical History Reviewed: Historical Data, Nursing Documentation, Vital Signs Vital Signs: Last Vital Signs Temp 99.0 F 09/09/16 16:56 Pulse 127 H 09/09/16 16:56 Resp 24 09/09/16 16:56 BP 121/86 09/09/16 16:56 Pulse Ox 97 09/09/16 16:56 - Medical History PMH: No Chronic Diseases Family History: States: Unknown Family Hx - Social History Hx Tobacco Use: No Hx Alcohol Use: No Hx Substance Use: No - Immunization History Hx Tetanus Toxoid Vaccination: No Hx Influenza Vaccination: No Hx Pneumococcal Vaccination: No Review Of Systems Except As Marked, All Systems Reviewed And Found Negative. Constitutional: Negative for: Fever, Weakness Cardiovascular: Negative for: Chest Pain Respiratory: Negative for: Shortness of Breath Gastrointestinal: Negative for: Vomiting Genitourinary: Positive for: Vaginal Bleeding. Negative for: Dysuria Musculoskeletal: Negative for: Neck Pain, Back Pain Skin: Negative for: Rash Neurological: Negative for: Weakness, Numbness, Seizures Psych: Positive for: Anxiety Physical Exam - Physical Exam Appears: No Acute Distress, Other (Anxious) Skin: Warm, Dry Head: Atraumatic Eye(s): bilateral: PERRL, EOMI Neck: Normal ROM, Supple Cardiovascular: Rhythm Regular (tachycardia) Respiratory: Normal Breath Sounds, No Accessory Muscle Use Gastrointestinal/Abdominal: Soft, No Tenderness Back: No CVA Tenderness Extremity: Normal ROM Neurological/Psych: Oriented x3, Normal Motor, Normal Sensation ED Course And Treatment - Laboratory Results Result Diagrams: 09/09/16 17:52 09/09/16 17:52 O2 Sat by Pulse Oximetry: 97 Pulse Ox Interpretation: Normal Disposition Discussed With : Ivon Tellez Comment: She evaluated pt in the ED and admitted to her service. Plan is for D& C. Doctor Will See Patient In The: ED Counseled Patient/Family Regarding: Studies Performed, Diagnosis - Disposition Disposition: HOSPITALIZED Disposition Time: 18:19 Condition: GUARDED - Clinical Impression Clinical Impression: DUB (dysfunctional uterine bleeding)
[2016-09-09 18:18] LABS: INR 1.1; PROTHROMBIN TIME 12.3 SECONDS (9.7-12.2)
--- NOTE | 2016-09-09 18:39 | CP.PCM.HP ---
History of Present Illness - History of Present Illness History of Present Illness: 26 y/o LMP irregular with abnormal uterine bleeding x 2 weeks. Pt now with 3rd ER visit and reports vaginal bleeding facuet like with large clots, now subsizied with occasional passing of quarter size clot. Pt had cramping initially at home now improved and feels very anxious about irregular bleeding. Pt had labs from 2 prevoius visits which were stable with pelvic US with no significant findings. Pt denies any CP, SOB, lightheadness, dizzyness. Pt was seen in office with report programmer 09/07 and plan for DxC was discussed however pt declined and bleeding has improved and stated was returning to [facility] next week and would follow with report programmer/john md there. OB: 2nd trimester SAB, PPROM (IVF [place]) INDUSTRIAL LABORER: Bicornuate utdaniele, denies hx of fibroids, ovarian cyst, STI PMH: denies PSH: laparascopy, hysteroscopy FHX: non contributory SHX: negative etoh/tobacco/drugs MEDS: none Present on Admission - Present on Admission Any Indicators Present on Admission: No Review of Systems - Review of Systems All systems: reviewed and no additional remarkable complaints except Review of Systems: see HPI - Constitutional Constitutional: As Per HPI - EENT Eyes: As Per HPI - Cardiovascular Cardiovascular: As Per HPI - Respiratory Respiratory: As Per HPI - Gastrointestinal Gastrointestinal: absent: As Per HPI, Abdominal Pain, Belching, Bloating, Change in Bowel Habits, Change in Stool Character, Coffee Ground Emesis, Constipation, Cramping, Diarrhea, Dyspepsia, Dysphagia, Early Satiety, Excessive Flatus, Fecal Incontinence, Heartburn, Hematemesis, Hematochezia, Loose Stools, Melena, Nausea, Odynophagia, Temesmus, Vomiting, Other - Genitourinary Genitourinary: As Per HPI - Reproductive: Female Reproductive:Female: As Per HPI, Abnormal Vaginal Bleeding - Menstruation Menstruation: Menses >/= 8 Days, Heavy Menses - Integumentary Integumentary: As Per HPI - Neurological Neurological: As Per HPI Past Patient History - Infectious Disease Hx of Infectious Diseases: None - Past Medical History & Family History Past Medical History?: No Past Family History: Reviewed and not pertinent - Past Social History Smoking Status: Never Smoked Chewing Tobacco Use: No Cigar Use: No Alcohol: None - CARDIAC Hx Cardiac Disorders: No - GENITOURINARY/GYNECOLOGICAL Other/Comment: IVF iDecember, 2016. miscarried in May, - PSYCHIATRIC Hx Substance Use: No - SURGICAL HISTORY Hx Surgeries: Yes Other/Comment: Right eardrum - ANESTHESIA Hx Anesthesia: Yes Hx Anesthesia Reactions: No Meds Allergies/Adverse Reactions: Allergies Allergy/AdvReac Type Severity Reaction Status Date / Time No Known Allergies Allergy Verified 09/09/16 16:56 Physical Exam - Constitutional Appears: Well, Non-toxic - Head Exam Head Exam: ATRAUMATIC, NORMAL INSPECTION, NORMOCEPHALIC - Eye Exam Eye Exam: EOMI, Normal appearance - ENT Exam ENT Exam: Mucous Membranes Moist - Neck Exam Neck exam: Positive for: Normal Inspection - Respiratory Exam Respiratory Exam: Clear to Auscultation Bilateral, NORMAL BREATHING PATTERN - Cardiovascular Exam Cardiovascular Exam: +S1, +S2 - GI/Abdominal Exam GI & Abdominal Exam: Normal Bowel Sounds, Soft Additional comments: no guarding, no rebound tenderness, no rigidity, +BS - Exam Additional comments: External Genitalia: no gross abnormalites, small amount of blood on perineum, Urethra: grossly normal Bladder; Non tender Vagina: bloodclot quarter size evaulated, dark red blood Cervix; no active bleeding, no masses Uteurs; anteverted, non tender Adenxa; non tender b/l, no masses b/l Anus/Perineum: grossly normal - Extremities Exam Extremities exam: Negative for: calf tenderness, full ROM, joint swelling, normal capillary refill, normal inspection, pedal edema, tenderness, pedal pulses present Results - Vital Signs Recent Vital Signs: Last Vital Signs Temp 99.0 F 09/09/16 16:56 Pulse 127 H 09/09/16 16:56 Resp 24 09/09/16 16:56 BP 121/86 09/09/16 16:56 Pulse Ox 97 09/09/16 18:19 - Labs Result Diagrams: 09/09/16 17:52 09/09/16 17:52 - Imaging and Cardiology US - abdomen Status: Report reviewed by me Assessment & Plan (1) Abnormal uterine bleeding Assessment and Plan: 26 y/o P0 LMP 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 Admit to report programmer 2. NPO, IVF LR @ 125cc/hr 3. Preop labs 4. VS per ER protoocol/ q 4 hours 5. inbound call center agent to OR for DXC hysterscopy: R/B/A/I OR/Anesthia aware 6. Ge prn/ Ins/outs 7. Bleeding precautions Status: Acute
[2016-09-09] MEDS: Lactated Ringer's 1,000 ML IV SCH (18:49)
[2016-09-10] MEDS: Lactated Ringer's 1,000 ML IV SCH (03:02)
[2016-09-10 08:09] LABS: BASO # 0.1 K/uL (0.0-0.2); BASO % 0.5 % (0.0-2.0); EOS # 0.4 K/uL (0.0-0.7); EOS % 4.4 % (0.0-4.0); HEMOGLOBIN 7.4 g/dL (11.0-16.0); LYMPH # 4.2 K/uL (1.0-4.3); LYMPH % 45.9 % (20.0-40.0); MEAN CELL VOLUME 84.7 fL (81.0-99.0); MEAN CORPUSCULAR HEMOGLOBIN 27.6 pg (27.0-31.0); MEAN CORPUSCULAR HGB CONC 32.6 g/dL (33.0-37.0); MEAN PLATELET VOLUME 8.3 fL (7.2-11.7); MONO # 0.5 K/uL (0.0-0.8); MONO % 5.8 % (0.0-10.0); NEUT % 43.4 % (50.0-75.0); NRBC % 0.1 % (0.0-2.0); RBC 2.67 Mil/uL (3.80-5.20); RED CELL DISTRIBUTION WIDTH 12.2 % (11.5-14.5); WHITE BLOOD COUNT 9.2 K/uL (4.8-10.8)
[2016-09-10] MEDS ORDERED: Lactated Ringer's 1,000 ML IV ONE ×2 (08:53)
[2016-09-10] MEDS ORDERED: Midazolam 2 MG/2 ML VIAL ONE (09:03)
[2016-09-10] MEDS ORDERED: Propofol 10 mg/ml Inj (20 ML) ONE ×2 (09:03→09:55)
[2016-09-10] MEDS ORDERED: Oxytocin 10 Units/ml Inj ONE (09:37)
[2016-09-10] MEDS ORDERED: Lidocaine Hydrochloride 5 ML INJ ONE (09:54)
[2016-09-10] MEDS: HYDROmorphone 0.5 mg/0.5 ml ISec IVP PRN ×2 (10:25→11:00)
[2016-09-10 10:54] LABS: MEAN CORPUSCULAR HEMOGLOBIN 27.4 pg (27.0-31.0); MEAN CORPUSCULAR HGB CONC 31.9 g/dL (33.0-37.0)
[2016-09-10 11:00] LABS: HEMOGLOBIN 7.8 g/dL (11.0-16.0); MEAN CELL VOLUME 85.9 fL (81.0-99.0); MEAN PLATELET VOLUME 8.4 fL (7.2-11.7); RBC 2.83 Mil/uL (3.80-5.20); RED CELL DISTRIBUTION WIDTH 12.5 % (11.5-14.5)
[2016-09-10 11:02] LABS: WHITE BLOOD COUNT 20.7 K/uL (4.8-10.8)
[2016-09-10] MEDS ORDERED: ceFAZolin IV 2 gm in Dextrose 1 GM/50 ML BAG IVPB SCH (11:15)
[2016-09-10] MEDS ORDERED: ceFAZolin 1 gm FROZEN Premix 1 GM/50 ML ML IVPB ONE (11:45)
--- NOTE | 2016-09-10 11:45 | PCM.SURG1 ---
Surgeon's Initial Post Op Note - Surgeon's Notes Surgeon: Ivon Tellez MD Web Analyst: none Type of Anesthesia: General LMA Anesthesia Administered By: Dr Monge Pre-Operative Diagnosis: Abnormal uterine bleeding Operative Findings: small anterverted utuerus 8 weeks sizes, no adnexal masses, thickened white proliferative type endometrium, no gross masses Post-Operative Diagnosis: same as above Operation Performed: Operative hysteroscopy dilation and currettag Specimen/Specimens Removed: endometrial currettings Estimated Blood Loss: EBL {In ML}: 100 Blood Products Given: N/A Drains Used: No Drains Post-Op Condition: Good Date of Surgery/Procedure: 09/10/16 Time of Surgery/Procedure: 09:00
[2016-09-10 16:18] VITALS: BP 100/62; PULSE 80; RESP 20; TEMP 97.8; O2SAT 100
[2016-09-10 18:01] LABS: HEMOGLOBIN 7.5 g/dL (11.0-16.0); LYMPH # 0.6 K/uL (1.0-4.3); LYMPH % 4.9 % (20.0-40.0); MEAN CELL VOLUME 85.1 fL (81.0-99.0); MEAN CORPUSCULAR HEMOGLOBIN 27.6 pg (27.0-31.0); MEAN CORPUSCULAR HGB CONC 32.4 g/dL (33.0-37.0); MEAN PLATELET VOLUME 8.6 fL (7.2-11.7); MONO # 0.1 K/uL (0.0-0.8); MONO % 0.5 % (0.0-10.0); NEUT # 12.5 K/uL (1.8-7.0); NEUT % 94.6 % (50.0-75.0); PLATELET COUNT 303 K/uL (130-400); RBC 2.72 Mil/uL (3.80-5.20); RED CELL DISTRIBUTION WIDTH 12.4 % (11.5-14.5); WHITE BLOOD COUNT 13.2 K/uL (4.8-10.8)
--- NOTE | 2016-09-10 18:18 | CP.PCM.DIS ---
Provider - Provider Date of Admission: 09/09/16 18:19 Attending physician: Ivon Tellez MD Consults: 30 Time Spent in preparation of Discharge (in minutes): 30 Diagnosis - Discharge Diagnosis (1) Abnormal uterine bleeding Status: Acute Priority: Low Hospital Course - Lab Results Lab Results: Most Recent Lab Values WBC 13.2 K/uL (4.8-10.8) H 09/10/16 17:30 RBC 2.72 Mil/uL (3.80-5.20) L 09/10/16 17:30 Hgb 7.5 g/dL (11.0-16.0) L 09/10/16 17:30 Hct 23.1 % (34.0-47.0) L 09/10/16 17:30 MCV 85.1 fL (81.0-99.0) 09/10/16 17:30 MCH 27.6 pg (27.0-31.0) 09/10/16 17:30 MCHC 32.4 g/dL (33.0-37.0) L 09/10/16 17:30 RDW 12.4 % (11.5-14.5) 09/10/16 17:30 Plt Count 303 K/uL (130-400) 09/10/16 17:30 MPV 8.6 fL (7.2-11.7) 09/10/16 17:30 Neut % (Auto) 94.6 % (50.0-75.0) H 09/10/16 17:30 Lymph % (Auto) 4.9 % (20.0-40.0) L 09/10/16 17:30 [place] % (Auto) 0.5 % (0.0-10.0) 09/10/16 17:30 Eos % (Auto) 0.0 % (0.0-4.0) 09/10/16 17:30 Baso % (Auto) 0.0 % (0.0-2.0) 09/10/16 17:30 Neut # 12.5 K/uL (1.8-7.0) H 09/10/16 17:30 Lymph # 0.6 K/uL (1.0-4.3) L 09/10/16 17:30 [place] # 0.1 K/uL (0.0-0.8) 09/10/16 17:30 Eos # 0.0 K/uL (0.0-0.7) 09/10/16 17:30 Baso # 0.0 K/uL (0.0-0.2) 09/10/16 17:30 Differential Comment 09/10/16 10:48 PT 12.3 SECONDS (9.7-12.2) H 09/09/16 17:52 INR 1.1 09/09/16 17:52 APTT 28 SECONDS (21-34) 09/09/16 17:52 Sodium 140 mmol/L (132-148) 09/09/16 17:52 Potassium 4.2 mmol/L (3.6-5.2) 09/09/16 17:52 Chloride 100 mmol/L (98-107) 09/09/16 17:52 Carbon Dioxide 23 mmol/L (22-30) 09/09/16 17:52 Anion Gap 20 (10-20) 09/09/16 17:52 BUN 8 mg/dL (7-17) 09/09/16 17:52 Creatinine 0.5 MG/DL (0.7-1.2) L 09/09/16 17:52 Est GFR ( Amer) > 60 09/09/16 17:52 Est GFR (Non-Af Amer) > 60 09/09/16 17:52 Random Glucose 101 mg/dL (65-105) 09/09/16 17:52 Calcium 9.4 mg/dl (8.6-10.4) 09/09/16 17:52 Total Bilirubin 0.5 mg/dL (0.2-1.3) 09/09/16 17:52 AST 22 U/L (14-36) 09/09/16 17:52 ALT 19 U/L (9-52) 09/09/16 17:52 Alkaline Phosphatase 65 U/L (38-126) 09/09/16 17:52 Total Protein 8.0 g/dL (6.3-8.3) 09/09/16 17:52 Albumin 4.2 g/dL (3.5-5.0) 09/09/16 17:52 Globulin 3.8 gm/dL (2.2-3.9) 09/09/16 17:52 Albumin/Globulin Ratio 1.1 (1.0-2.1) 09/09/16 17:52 Beta HCG, Quant < 2.39 mIU/ML 09/09/16 17:52 Blood Type A POSITIVE 09/09/16 19:33 Antibody Screen Negative 09/09/16 19:33 - Date & Time of H&P Date of H&P: 09/09/16 Discharge Exam - Head Exam Head Exam: ATRAUMATIC, NORMAL INSPECTION, NORMOCEPHALIC - Eye Exam Eye Exam: EOMI - Respiratory Exam Respiratory Exam: Clear to PA & Lateral, NORMAL BREATHING PATTERN, UNREMARKABLE - Cardiovascular Exam Cardiovascular Exam: REGULAR RHYTHM - GI/Abdominal Exam GI & Abdominal Exam: Normal Bowel Sounds, Unremarkable Additional comments: see Hp+P Discharge Plan - Follow Up Plan Condition: GUARDED Disposition: HOME/ ROUTINE Instructions: Dysfunctional Uterine Bleeding (DC), Dilation and Curettage (DC)
[2016-09-10 19:14] LABS: HYPOCHROMIC SLIGHT; LYMPHOCYTE 5 % (20-40); NEUTROPHIL 95 % (50-75); PLATELET ESTIMATE NORMAL (NORMAL); POIKILOCYTOSIS SLIGHT; TOTAL CELLS COUNTED 100
[2016-09-10 19:15] LABS: LARGE PLATELETS PRESENT; OVALOCYTES SLIGHT; POLYCHROMIC SLIGHT
--- NOTE | 2016-09-10 21:25 | OP ---
PROCEDURE DATE: 09/10/2016 SURGEON: Dr. Ivon Tellez. INCOME TAX ADJUSTER: None. TYPE OF ANESTHESIA: General LMA. ANESTHESIA ADMINISTERED: Dr. Monge. PREOPERATIVE DIAGNOSIS: Abnormal uterine bleeding. OPERATIVE FINDINGS: Anteverted uterus, 8-week size; no adnexal masses; thickened white proliferative type endometrium; no gross masses. POSTOPERATIVE DIAGNOSIS: Abnormal uterine bleeding. OPERATION PERFORMED: Operative hysteroscopy and dilation and curettage. SPECIMEN REMOVED: Endometrial curetting. ESTIMATED BLOOD LOSS: 100 mL. BLOOD PRODUCTS: None. COMPLICATIONS: None. PROCEDURE IN DETAIL: The patient is a 26-year-old G1, P0-0-1-0, LMP irregular with abnormal uterine bleeding for the past few weeks, was seen in the ER 3 times within 1 week due to heavy bleeding, symptomatic anemia and pelvic pain. Upon initial evaluation, the patient was noted to be profusely bleeding. The patient was admitted and observed and was counseled for D and C and hysteroscopy. Risks, benefits, alternatives and indications were discussed with the patient. The patient's hemoglobin over the past ER visits had gone from 12 to 10.8 to 7.4 this morning and decision was made for hysteroscopy and D and C. The patient was taken to the operating room where she was given general anesthesia. Once found to be adequate, she was positioned on the operating table in dorsal supine position with legs supported using stirrups. The patient was then prepped and draped in the usual sterile fashion. A time-out confirmed correct patient, correct procedure. A bimanual exam was performed with the above-mentioned findings. A red rubber catheter was inserted into the urethra to drain the bladder and 100 mL of clear yellow urine was obtained. Thin retractor was placed in the anterior and posterior fornix of the vagina and the cervix was adequately visualized. A single tooth tenaculum was placed in the anterior lip of the cervix and the uterus was then sounded to 7 cm. Following this, cervix was sequentially dilated to allow for introduction of the hysteroscopy under visualization using the normal saline as a distention media. Upon visualization, there is no gross mass and there is thickened white proliferative endometrium. A gentle curettage was done 360 degrees and the specimen was sent to pathology on [facility]. As the scope was then reintroduced, there was good hemostasis noted. Following this, there was bleeding noted from the cervical os and by bimanual exam was performed in addition to Pitocin through the IV fluid. The patient was reevaluated and there was good hemostasis noted. All instruments were removed including the single tooth tenaculum. There was good hemostasis at the tenaculum puncture site. At the end of the procedure, all needle, sponge, and instrument counts were noted and correct x2. The patient tolerated the procedure well and was transferred to the recovery room in stable condition. Ivon Tellez MD
== END 2016-09-10 20:45 | disposition home or self-care (01) | DRG 745 ==
LOC: C.ER 16:50 → C.9E 18:19 → C.4M 19:08
PROVIDERS: ADMIT Obstetrics & Gynecology; ATTEND Obstetrics & Gynecology
PROC: 0UDB8ZX Extraction of Endometrium, Via Natural or Artificial Opening Endoscopic, Diagnostic (ICD-10-PCS; principal; 2016-09-10 09:00)
DX: N93.8 Other specified abnormal uterine and vaginal bleeding (principal); N85.4 Malposition of uterus; Q51.3 Bicornate uterus; R93.8 Abnormal findings on diagnostic imaging of other specified body structures

== ENCOUNTER 2018-01-12 12:57 | Emergency (ER) | payer OTHER ==
[2018-01-12 12:57] VITALS: BMI 23.2
[2018-01-12 13:26] VITALS: RESP 18; TEMP 98.4
--- NOTE | 2018-01-12 14:22 | C.PDOC ---
History Of Present Illness 27 year old female presents to the ED complaining of left sided abdominal pain for 10 days but worse since last night. Reports she had an Ultrasound on 01/07/18 which showed an 4.7 x 2.8 x 3.5 mm ovarian cyst. Patient was given pain medications and advised to come to ED if pain got worse. States she has a follow up US tomorrow. Complains of nausea and constipation. Denies any vomiting, diarrhea, fever, chills, back pain, chest pain, shortness of breath, vaginal bleeding or discharge. As per , patient had an uterine embolization last year in [place]. She took Ibuprofen at 10:00 today. LNMP 12/05. Time Seen by Provider: 01/12/18 14:20 Chief Complaint (Nursing): Female Genitourinary History Per: Patient History/Exam Limitations: no limitations Onset/Duration Of Symptoms: Days Current Symptoms Are (Timing): Still Present Past Medical History Reviewed: Historical Data, Nursing Documentation, Vital Signs Vital Signs: Last Vital Signs Temp 98.4 F 01/12/18 13:23 Pulse 77 01/12/18 13:23 Resp 18 01/12/18 13:23 BP 108/71 01/12/18 13:23 Pulse Ox 100 01/12/18 13:23 - Medical History Other PMH: ovarian cyst Other Surgeries: uterine embolization - [facility] EXTRACTION OF ENDOMETRIUM, ENDO, DIAGN (09/09/16) Family History: States: No Known Family Hx - Social History Hx Tobacco Use: No Hx Alcohol Use: No Hx Substance Use: No - Immunization History Hx Tetanus Toxoid Vaccination: No Hx Influenza Vaccination: No Hx Pneumococcal Vaccination: No Review Of Systems Constitutional: Negative for: Fever, Chills Cardiovascular: Negative for: Chest Pain Respiratory: Negative for: Shortness of Breath Gastrointestinal: Positive for: Nausea, Abdominal Pain (left sided), Constipation. Negative for: Vomiting, Diarrhea Genitourinary: Negative for: Dysuria, Hematuria, Vaginal Discharge, Vaginal Bleeding Musculoskeletal: Negative for: Back Pain Physical Exam - Physical Exam Appears: Non-toxic, No Acute Distress Skin: Warm, Dry, No Rash Head: Normacephalic Eye(s): bilateral: Normal Inspection Nose: Normal Oral Mucosa: Moist Neck: Supple Chest: Symmetrical Cardiovascular: Rhythm Regular Respiratory: No Rales, No Rhonchi, No Wheezing Gastrointestinal/Abdominal: Soft, Tenderness (LLQ), No Distention, No Guarding, No Rebound Extremity: Bilateral: Atraumatic, Normal Color And Temperature, Normal ROM Pulses: Left Dorsalis Pedis: Normal, Right Dorsalis Pedis: Normal Neurological/Psych: Oriented x3, Normal Speech Gait: Steady ED Course And Treatment - Laboratory Results Result Diagrams: 01/12/18 14:46 01/12/18 14:46 O2 Sat by Pulse Oximetry: 100 (RA) Pulse Ox Interpretation: Normal - CT Scan/US CT Other Rad Studies (CT/US): Read By Radiologist, Radiology Report Reviewed CT/US Interpretation: IMPRESSION: Involuting or ruptured left ovarian follicle. Irregular soft tissue density in the left ovary of uncertain significance. Correlate with pelvic ultrasound examination. Minimal fluid in cul-de-sac. No other significant abnormality. US transvaginal Other Rad Studies (CT/US): Read By Radiologist, Radiology Report Reviewed CT/US Interpretation: IMPRESSION: Corpus luteum in left ovary. No intrauterine gestation. Minimal fluid in cul-de-sac. Otherwise unremarkable. Medical Decision Making Medical Decision Makin yr old F w/ hx of uterine embolization after D/C for persistent bloody vaginal d/c p/w Lower pelvic pain. Has been seen by outpt obgyn and dx w/ L ovarian cyst 4.7cm. Recurrent pain, exactly alike pain seek by ogyn. Pain not improved in the morning w/ morning ibuprofen this am at 0900. Likely cyst pain. Will seek imaging, labs. Orders: - CT abd/pel - Bloodwork - Toradol 15mg IVP - US transvaginal - POC 1526 labs unremarkable. Preg Neg Pending imaging [address] Peraza (RADS) relatively same size of cyst: <5cm likely recurrent cyst pain pending pelvic exam 1739 pain improved no CMT, no adenexal tenderness No d/c from cervix given pain non intermittent and good flow as well as pain improvement, clear for d/c home Disposition - Disposition Disposition Time: 17:39 Condition: GOOD Forms: [facility] (Bulgarian) - Clinical Impression Clinical Impression: Ovarian cyst - Scribe Statement The provider has reviewed the documentation as recorded by the Scribe Isabel Yadav All medical record entries made by the Scribe were at my direction and personally dictated by me. I have reviewed the chart and agree that the record accurately reflects my personal performance of the history, physical exam, [facility] decision making, and the department course for this patient. I have also personally directed, reviewed, and agree with the discharge instructions and disposition.
[2018-01-12 14:29] LABS: HCG,QUALITATIVE URINE NEGATIVE (NEGATIVE)
[2018-01-12 14:30] LABS: SQUAMOUS EPITHIAL 5 /hpf (0-5); URINE BACTERIA RARE (<OCC); URINE BILIRUBIN NEGATIVE (NEGATIVE); URINE BLOOD NEGATIVE (NEGATIVE); URINE CLARITY Clear (Clear); URINE COLOR Yellow (YELLOW); URINE GLUCOSE (UA) NORMAL (Normal); URINE LEUKOCYTE ESTERASE NEG Leu/uL (Negative); URINE PROTEIN NEGATIVE (NEGATIVE); URINE UROBILINOGEN NORMAL mg/dL (0.2-1.0)
[2018-01-12 14:50] LABS: BASO # 0.1 K/uL (0.0-0.2); BASO % 0.7 % (0.0-2.0); EOS # 0.3 K/uL (0.0-0.7); HEMOGLOBIN 12.8 g/dL (11.0-16.0); LYMPH # 2.7 K/uL (1.0-4.3); MEAN CELL VOLUME 82.2 fL (81.0-99.0); MEAN CORPUSCULAR HEMOGLOBIN 28.2 pg (27.0-31.0); MEAN CORPUSCULAR HGB CONC 34.3 g/dL (33.0-37.0); MEAN PLATELET VOLUME 8.2 fL (7.2-11.7); MONO # 0.6 K/uL (0.0-0.8); MONO % 6.5 % (0.0-10.0); NEUT # 5.7 K/uL (1.8-7.0); NEUT % 60.8 % (50.0-75.0); RBC 4.53 Mil/uL (3.80-5.20); RED CELL DISTRIBUTION WIDTH 12.6 % (11.5-14.5); WHITE BLOOD COUNT 9.4 K/uL (4.8-10.8)
[2018-01-12 15:08] LABS: ALB/GLOB RATIO 1.1 (1.0-2.1); ALBUMIN 4.2 g/dL (3.5-5.0); ALT/SGPT 30 U/L (9-52); AST/SGOT 21 U/L (14-36); BLOOD UREA NITROGEN 11 mg/dL (7-17); CALCIUM 8.9 mg/dl (8.6-10.4); GFR NON-AFRICAN AMERICAN > 60; LIPASE 57 U/L (23-300)
[2018-01-12] MEDS ORDERED: Iodixanol 320 MG/ML 100 ML BOTTLE IV ONE (15:30)
--- NOTE | 2018-01-12 16:44 | CT ---
Date of service: 01/12/2018 PROCEDURE: CT Abdomen and Pelvis with contrast HISTORY: llq pain, hx of cyst, recurrent COMPARISON: None. TECHNIQUE: Contrast dose: 100 mL Visipaque 320 Radiation dose: Total exam DLP = 293.03 mGy-cm. This CT exam was performed using one or more of the following dose reduction techniques: Automated exposure control, adjustment of the mA and/or kV according to patient size, and/or use of iterative reconstruction technique. FINDINGS: LOWER THORAX: Unremarkable. LIVER: Unremarkable. No gross lesion or ductal dilatation. GALLBLADDER AND BILE DUCTS: Unremarkable. PANCREAS: Unremarkable. No gross lesion or ductal dilatation. SPLEEN: Unremarkable. ADRENALS: Unremarkable. No mass. KIDNEYS AND URETERS: Unremarkable. No hydronephrosis. No solid mass. VASCULATURE: Unremarkable. No aortic aneurysm. No aortic atherosclerotic calcification or mural plaque present. BOWEL: Unremarkable. No obstruction. No gross mural thickening. APPENDIX: Normal appendix. PERITONEUM: Trace fluid in pelvis. No pneumoperitoneum. LYMPH NODES: Unremarkable. No enlarged lymph nodes. BLADDER: Nondistended REPRODUCTIVE: Unremarkable uterus. There is an irregularly-shaped peripherally enhancing structure in left ovary measuring 2.2 cm. Likely involuting or ruptured ovarian follicle. In addition, however, there is soft tissue density is somewhat irregular and of uncertain significance. Correlate with pelvic ultrasound examination. BONES: No acute fracture. OTHER FINDINGS: None. IMPRESSION: Involuting or ruptured left ovarian follicle. Irregular soft tissue density in the left ovary of uncertain significance. Correlate with pelvic ultrasound examination. Minimal fluid in cul-de-sac. No other significant abnormality.
--- NOTE | 2018-01-12 16:48 | US ---
Date of service: 01/12/2018 HISTORY: llq pain, hx of ovarian cyst COMPARISON: None available. TECHNIQUE: Transvaginal FINDINGS: UTERUS: Measures 7.7 x 4.1 x 5.4 cm. Normal in size and appearance. No fibroid or other mass lesion seen. ENDOMETRIUM: Measures 7 mm in diameter. Unremarkable. CERVIX: No cervical abnormality identified. RIGHT OVARY: Measures 3.0 x 2.7 x 2.9 cm. No solid mass. Normal flow. LEFT OVARY: Measures 4.6 x 3.0 x 4.4 cm. There is a probable corpus luteum in the left ovary, seen on image 48. This corresponds to the irregular peripherally enhancing structure seen on CT. There is a small follicular cyst also noted. No other mass identified. FREE FLUID: Minimal fluid in cul-de-sac. OTHER FINDINGS: None. IMPRESSION: Corpus luteum in left ovary. No intrauterine gestation. Minimal fluid in cul-de-sac. Otherwise unremarkable.
[2018-01-12 17:55] VITALS: BP 121/70; PULSE 72; O2SAT 98
== END 2018-01-12 17:54 | disposition home or self-care (01) ==
LOC: C.ER 12:57
DX: N83.202 Unspecified ovarian cyst, left side (principal)
CPT/HCPCS: 74177; 76830; 80053; 81001; 83690; 84703; 85025; 96374; 99285; J1885; Q9967

== ENCOUNTER 2018-01-18 18:48 | Emergency (ER) | payer OTHER ==
[2018-01-18 18:57] VITALS: BMI 25.4
[2018-01-18] MEDS ORDERED: Sodium Chloride 0.9% 1,000 ML IV STA (19:44)
--- NOTE | 2018-01-18 19:44 | C.PDOC ---
History Of Present Illness 27 year old female presents to the ED c/o left lower flank pain associated with nausea that has been going on for a while. Patient was seen in the ED on 01/12/18, patient had a CT scan and US that showed involuting rupture of left ov derek cyst. Patient reports she saw her OBGYN today and was told that her symptoms were not OBGYN problem. Patient also reports having blood in her urine and need a urologist. Patient denies fever, chills, vomit, diarrhea, vaginal discharge, vaginla bleeding, rash, weakness, numbness. Time Seen by Provider: 01/18/18 19:44 Chief Complaint (Nursing): Abdominal Pain History Per: Patient History/Exam Limitations: no limitations Onset/Duration Of Symptoms: Days Current Symptoms Are (Timing): Still Present Context: Other Severity: Moderate Pain Scale Rating Of: 4 Location Of Pain/Discomfort: Other (left flank pain) Radiation Of Pain To:: Flank Quality Of Discomfort: "Pain" Associated Symptoms: Nausea, Urinary Symptoms. denies: Vomiting, Diarrhea, Constipation Alleviating Factors: None Last Bowel Movement: Today Recent travel outside of the [place]: No Additional History Per: Patient Abnormal Vaginal Bleeding: No Past Medical History Reviewed: Historical Data, Nursing Documentation, Vital Signs Vital Signs: Last Vital Signs Temp 98.3 F 01/18/18 18:57 Pulse 97 H 01/18/18 18:57 Resp 18 01/18/18 18:57 BP 112/72 01/18/18 18:57 Pulse Ox 100 01/18/18 18:57 - Medical History PMH: No Chronic Diseases Surgical History: No Surg Hx - [facility] Procedures EXTRACTION OF ENDOMETRIUM, ENDO, DIAGN (09/09/16) Family History: States: Unknown Family Hx - Social History Hx Tobacco Use: No Hx Alcohol Use: No Hx Substance Use: No - Immunization History Hx Tetanus Toxoid Vaccination: No Hx Influenza Vaccination: No Hx Pneumococcal Vaccination: No Review Of Systems Constitutional: Negative for: Fever, Chills Cardiovascular: Negative for: Chest Pain Respiratory: Negative for: Cough, Shortness of Breath Gastrointestinal: Positive for: Nausea, Abdominal Pain. Negative for: Vomiting, Diarrhea Genitourinary: Positive for: Hematuria. Negative for: Dysuria Musculoskeletal: Positive for: Back Pain Skin: Negative for: Rash Neurological: Negative for: Weakness, Numbness Physical Exam - Physical Exam Appears: Non-toxic, No Acute Distress Skin: Warm, Dry Head: Normacephalic Eye(s): bilateral: Normal Inspection Oral Mucosa: Moist Neck: Supple Chest: Symmetrical Cardiovascular: Rhythm Regular Respiratory: No Rales, No Rhonchi, No Wheezing Gastrointestinal/Abdominal: Bowel Sounds (tympanic to percussion), Soft, No Tenderness, No Distention, No Guarding, No Rebound Back: CVA Tenderness (left), No Vertebral Tenderness, No Decreased ROM, No Paraspinal Tenderness Extremity: Normal ROM Extremity: Bilateral: Atraumatic, Normal Color And Temperature, Normal ROM Neurological/Psych: Oriented x3, Normal Speech, Normal Cognition Gait: Steady ED Course And Treatment - Laboratory Results Result Diagrams: 01/18/18 19:59 01/18/18 19:59 O2 Sat by Pulse Oximetry: 100 (ON RA) Pulse Ox Interpretation: Normal Progress Note: Plan: - Labs. - Morphine 2 mg IVP. - Pepcid 20 mg IVP. - IV fluids. - Zofran 4 mg IVP. - UA Reevaluation Time: 22:43 Reassessment Condition: Improved Disposition Counseled Patient/Family Regarding: Studies Performed, Diagnosis, Need For Fol lowup, Rx Given - Disposition Disposition: HOME/ ROUTINE Disposition Time: 19:44 Condition: FAIR Additional Instructions: Please follow up with your own doctor and urologist Prescriptions: Polyethylene Glycol 3350 [Miralax] 17 gm PO DAILY #270 ml traMADol [Ultram] 50 mg PO TID PRN #15 tab PRN Reason: Pain, Severe (8-10) Instructions: Flank Pain (DC) Forms: [employer] (Kinyarwanda) - Clinical Impression Clinical Impression: Left flank pain - Scribe Statement The provider has reviewed the documentation as recorded by the Scribe Jluis Corona All medical record entries made by the Scribe were at my direction and personally dictated by me. I have reviewed the chart and agree that the record accurately reflects my personal performance of the history, physical exam, medical decision making, and the department course for this patient. I have also personally directed, reviewed, and agree with the discharge instructions and disposition.
[2018-01-18] MEDS ORDERED: Sodium Chloride 0.9% 1,000 ML IV ONE (19:58)
[2018-01-18 20:00] LABS: HCG,QUALITATIVE URINE NEGATIVE (NEGATIVE); SQUAMOUS EPITHIAL < 1 /hpf (0-5); URINE BILIRUBIN NEGATIVE (NEGATIVE); URINE BLOOD 2+ (NEGATIVE); URINE CLARITY Clear (Clear); URINE COLOR Colorless (YELLOW); URINE GLUCOSE (UA) NORMAL (Normal); URINE LEUKOCYTE ESTERASE NEG Leu/uL (Negative); URINE PROTEIN NEGATIVE (NEGATIVE); URINE UROBILINOGEN NORMAL mg/dL (0.2-1.0)
[2018-01-18 20:02] LABS: BASO # 0.1 K/uL (0.0-0.2); BASO % 0.9 % (0.0-2.0); EOS # 0.2 K/uL (0.0-0.7); EOS % 2.3 % (0.0-4.0); HEMOGLOBIN 11.3 g/dL (11.0-16.0); LYMPH # 2.9 K/uL (1.0-4.3); LYMPH % 34.1 % (20.0-40.0); MEAN CORPUSCULAR HEMOGLOBIN 27.9 pg (27.0-31.0); MEAN PLATELET VOLUME 8.1 fL (7.2-11.7); MONO # 0.7 K/uL (0.0-0.8); MONO % 8.1 % (0.0-10.0); NEUT # 4.7 K/uL (1.8-7.0); NEUT % 54.6 % (50.0-75.0); RBC 4.06 Mil/uL (3.80-5.20); RED CELL DISTRIBUTION WIDTH 12.2 % (11.5-14.5); WHITE BLOOD COUNT 8.5 K/uL (4.8-10.8)
[2018-01-18] MEDS ORDERED: Sodium Chloride 0.9% 1,000 ML ONE (20:06)
[2018-01-18 20:26] LABS: ALB/GLOB RATIO 1.1 (1.0-2.1); ALBUMIN 4.1 g/dL (3.5-5.0); ALT/SGPT 45 U/L (9-52); AST/SGOT 40 U/L (14-36); BLOOD UREA NITROGEN 5 mg/dL (7-17); CALCIUM 9.3 mg/dl (8.6-10.4); GFR NON-AFRICAN AMERICAN > 60; LIPASE 41 U/L (23-300)
[2018-01-18 22:56] VITALS: BP 104/69; PULSE 87; RESP 16; TEMP 98; O2SAT 99
--- NOTE | 2018-01-19 12:14 | US ---
Abdominal ultrasound HISTORY: Left flank pain. Comparison: None available. Technique: Real-time sonography was performed through the abdomen. Findings: Gaseous distension of bowel limits evaluation. Liver: 13.9 centimeters in length. Normal echogenicity. Gallbladder: No calculi or sludge. Normal wall thickness of 2 millimeters. Negative sonographic Patel's sign. Common bile duct measures 6 millimeters, mildly prominent. Clinical correlation. Limited visualization of the pancreas. Spleen measures 9.2 centimeters in length, within normal limits. Visualized portions of the aorta and IVC are preserved. Right kidney: 10.1 x 5.1 x 5.1 centimeters. No calculi or hydronephrosis Left Kidney: 10.8 x 4.5 x 5.2 centimeters. No calculi or hydronephrosis. Impression: Limited study secondary to gaseous distention of bowel. Prominence of the common bile duct measuring up to 6 millimeters. Clinical correlation. Limited visualization of the pancreas. A preliminary report was generated by [facility].
== END 2018-01-18 23:02 | disposition home or self-care (01) ==
LOC: C.ER 18:48
DX: R10.9 Unspecified abdominal pain (principal)
CPT/HCPCS: 76700; 80053; 81001; 83690; 84703; 85025; 96361; 96374; 96375; 99284; J2270; J2405; J7030

== ENCOUNTER 2018-03-08 17:22 | Emergency (ER) | payer OTHER ==
[2018-03-08 17:34] VITALS: BMI 21.9
[2018-03-08] MEDS ORDERED: Sodium Chloride 0.9% 1,000 ML IV ONE (17:50)
--- NOTE | 2018-03-08 18:00 | C.PDOC ---
History Of Present Illness Patient is a 27 year old female, with a PMHx of transfusion and D&C, who presents to the ED for vaginal bleeding since yesterday. Patient notes associated pelvic cramping. She denies any fever, CP, SOB, chills, nausea, vomiting, or diarrhea. Time Seen by Provider: 03/08/18 17:42 Chief Complaint (Nursing): Abdominal Pain History Per: Patient History/Exam Limitations: no limitations Onset/Duration Of Symptoms: Days (1 ) Current Symptoms Are (Timing): Still Present Quality Of Discomfort: Cramping (pelvic ) Associated Symptoms: denies: Fever, Chills, Nausea, Vomiting, Diarrhea, Chest Pain, Other (SOB) Recent travel outside of the [place]: No Additional History Per: Patient Abnormal Vaginal Bleeding: Yes Past Medical History Reviewed: Historical Data, Nursing Documentation, Vital Signs Vital Signs: Last Vital Signs Temp 98.5 F 03/08/18 17:34 Pulse 85 03/08/18 17:34 Resp 18 03/08/18 17:34 BP 110/76 03/08/18 17:34 Pulse Ox 98 03/08/18 17:34 - Medical History PMH: No Chronic Diseases Surgical History: No Surg Hx - [facility] Procedures EXTRACTION OF ENDOMETRIUM, ENDO, DIAGN (09/09/16) Family History: States: Unknown Family Hx - Social History Hx Tobacco Use: No Hx Alcohol Use: No Hx Substance Use: No - Immunization History Hx Tetanus Toxoid Vaccination: No Hx Influenza Vaccination: No Hx Pneumococcal Vaccination: No Review Of Systems Constitutional: Negative for: Fever, Chills Cardiovascular: Negative for: Chest Pain Respiratory: Negative for: Shortness of Breath Gastrointestinal: Negative for: Nausea, Vomiting, Diarrhea Physical Exam - Physical Exam Appears: Non-toxic, No Acute Distress Skin: Normal Color, Warm, Dry Head: Atraumatic, Normacephalic Oral Mucosa: Moist Neck: Normal ROM, Supple Chest: Symmetrical, No Deformity Cardiovascular: Rhythm Regular, No Murmur Respiratory: Normal Breath Sounds, No Rales, No Rhonchi, No Wheezing Gastrointestinal/Abdominal: Soft, Tenderness (mild suprapubic ) Neurological/Psych: Oriented x3, Normal Speech, Normal Cognition ED Course And Treatment - Laboratory Results Result Diagrams: 03/08/18 18:15 03/08/18 18:15 O2 Sat by Pulse Oximetry: 98 (on RA) Pulse Ox Interpretation: Normal Medical Decision Making Medical Decision Making: dub ro anemia fibroid. Bloodwork, Urinalysis, US Transvaginal ordered and reviewed. Tylenol 975 mg PO and IV Fluids administered. 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 no active bleeding. h/h stable vitals stable. Discussed patient with OB on-call Dr. Herbert, she states that the patient needs an outpatient follow-up. strict return precautiosn advised. Disposition - Disposition Referrals: [facility] [[facility]] Destiny Herbert DO [Staff Provider] - Disposition: HOME/ ROUTINE Disposition Time: 20:00 Condition: STABLE Additional Instructions: follow up with obgyn. you will need further testing and managment. return to any er with worsening Instructions: Uterine Fibroids, Heavy Periods (DC) Forms: [employer] (Nepalese) - Clinical Impression Clinical Impression: Vaginal bleeding, Fibroid - Scribe Statement The provider has reviewed the documentation as recorded by the Jaylene Carreon All medical record entries made by the Valenteibshea were at my direction and personall y dictated by me. I have reviewed the chart and agree that the record accurately reflects my personal performance of the history, physical exam, medical decision making, and the department course for this patient. I have also personally directed, reviewed, and agree with the discharge instructions and disposition.
[2018-03-08 18:25] LABS: BASO # 0.1 K/uL (0.0-0.2); BASO % 1.1 % (0.0-2.0); EOS # 0.3 K/uL (0.0-0.7); EOS % 2.8 % (0.0-4.0); HEMOGLOBIN 12.6 g/dL (11.0-16.0); LYMPH # 2.5 K/uL (1.0-4.3); LYMPH % 27.5 % (20.0-40.0); MEAN CELL VOLUME 82.7 fL (81.0-99.0); MEAN CORPUSCULAR HEMOGLOBIN 27.6 pg (27.0-31.0); MEAN CORPUSCULAR HGB CONC 33.3 g/dL (33.0-37.0); MEAN PLATELET VOLUME 8.3 fL (7.2-11.7); MONO # 0.6 K/uL (0.0-0.8); NEUT # 5.6 K/uL (1.8-7.0); NEUT % 61.6 % (50.0-75.0); NRBC % 0.1 % (0.0-2.0); RBC 4.56 Mil/uL (3.80-5.20); RED CELL DISTRIBUTION WIDTH 14.6 % (11.5-14.5); WHITE BLOOD COUNT 9.1 K/uL (4.8-10.8)
[2018-03-08] MEDS ORDERED: Sodium Chloride 0.9% 1,000 ML ONE (18:25)
[2018-03-08 18:34] LABS: INR 1.1; PROTHROMBIN TIME 12.2 SECONDS (9.7-12.2)
[2018-03-08 18:40] LABS: SQUAMOUS EPITHIAL 1 /hpf (0-5); URINE BILIRUBIN NEGATIVE (NEGATIVE); URINE BLOOD 3+ (NEGATIVE); URINE CLARITY Clear (Clear); URINE COLOR Yellow (YELLOW); URINE GLUCOSE (UA) NORMAL (Normal); URINE LEUKOCYTE ESTERASE NEG Leu/uL (Negative); URINE PROTEIN NEGATIVE (NEGATIVE); URINE UROBILINOGEN NORMAL mg/dL (0.2-1.0)
[2018-03-08 18:42] VITALS: RESP 20
[2018-03-08 18:42] LABS: ALB/GLOB RATIO 1.3 (1.0-2.1); AST/SGOT 23 U/L (14-36); BLOOD UREA NITROGEN 7 mg/dL (7-17); GFR NON-AFRICAN AMERICAN > 60
[2018-03-08 18:43] LABS: ALT/SGPT < 6 U/L (9-52)
[2018-03-08 19:44] VITALS: BP 119/71; PULSE 82; TEMP 97.9
[2018-03-08 20:10] VITALS: O2SAT 98
[2018-03-08 23:48] LABS: HCG,QUALITATIVE URINE NEGATIVE (NEGATIVE)
--- NOTE | 2018-03-09 16:43 | US ---
Date of service: 03/08/2018 HISTORY: vb COMPARISON: None available. TECHNIQUE: Transabdominal sonographic evaluation of the pelvis performed. Correlation made with prior pelvic ultrasound and CT scan abdomen pelvis both dated 01/12/2018.. FINDINGS: UTERUS: Measures 7.7 x 4.1 x 5.2 cm. Anteverted uterus exhibits relatively normal size however note made of what could represent a tiny calcification in the fundal region; possibly representing a tiny the fibroid. ENDOMETRIUM: Measures 5.0 mm in diameter. Unremarkable. CERVIX: No cervical abnormality identified. RIGHT OVARY: Measures 3.5 x 2.2 x 2.9 cm. Complex cyst and/or hemorrhagic measuring 1.2 x 0.92 x 1.1 cm with small amount of adjacent free fluid.. Normal flow. LEFT OVARY: Measures 3.5 x 2.1 x 3.2 cm. No solid mass. Normal flow. FREE FLUID: No significant free fluid noted. OTHER FINDINGS: None. IMPRESSION: Complex right ovarian cyst with small amount of adjacent free fluid. Questionable tiny calcification within the fundus of the uterus..
== END 2018-03-08 20:29 | disposition home or self-care (01) ==
LOC: C.ER 17:22
DX: N93.9 Abnormal uterine and vaginal bleeding, unspecified (principal); D25.9 Leiomyoma of uterus, unspecified
CPT/HCPCS: 76830; 76856; 80053; 81001; 84702; 84703; 85025; 85610; 85730; 86850; 86900; 96360; 99285; J7030